=== PATIENT | male | born 1970 | race Caucasian/White ===

== ENCOUNTER 2016-12-06 01:25 | Emergency (ER) | payer BC, OTHER ==
--- NOTE | 2016-12-06 02:06 | XR ---
EXAM: XR Left Foot Complete, 3 or More Views CLINICAL HISTORY: Reason: Pain; hit on top of foot by softball. TECHNIQUE: Frontal, lateral and oblique views of the left foot. COMPARISON: No relevant prior studies available. FINDINGS: Bones/joints: No acute fracture. No dislocation. Minor degenerative change including at the first MTP joint and which could account for tiny subchondral cysts in the fifth metatarsal head. Soft tissues: Unremarkable. No radiopaque foreign body. IMPRESSION: 1. No acute fracture or evidence of dislocation. 2. Note, nondisplaced fractures may initially be inapparent, and short- term follow-up could be considered if concern or symptoms persist.
--- NOTE | 2016-12-06 02:13 | ED ---
Lower Extremity Injury HPI - General Chief Complaint: Extremity Injury, Lower Stated Complaint: Foot Injury Time Seen by Provider: 12/06/16 01:46 Source: patient, RN notes reviewed, old records reviewed Mode of arrival: ambulatory Limitations: no limitations - History of Present Illness Initial Comments: 46-year-old male presents emergency Department chief complaint left foot pain after being hit in the top of the foot with a softball. Patient reports pain with flexion and extension of his toes. Patient reports the pain was worse with bearing weight over the foot. Patient denies any previous injuries. Patient does have significant swelling over the dorsum of the left foot. Pain is mainly over the first through third metatarsals. - Related Data Home Medications Medication Instructions Recorded Confirmed No Known Home Medications [No 12/22/13 12/06/16 Known Home Medications] Allergies Allergy/AdvReac Type Severity Reaction Status Date / Time No Known Allergies Allergy Verified 12/06/16 01:33 Review of Systems ROS Statement: Those systems with pertinent positive or pertinent negative responses have been documented in the HPI. ROS Other: All systems not noted in ROS Statement are negative. Past Medical History Past Medical History: No Reported History History of Any Multi-Drug Resistant Organisms: None Reported Past Surgical History: No Surgical Hx Reported Past Psychological History: No Psychological Hx Reported Smoking Status: Current every day smoker Past Alcohol Use History: Occasional Past Drug Use History: Marijuana General Exam Limitations: no limitations General appearance: alert, in no apparent distress Head exam: Present: atraumatic, normocephalic, normal inspection Eye exam: Present: normal appearance, PERRL, EOMI. Absent: scleral icterus, conjunctival injection, periorbital swelling ENT exam: Present: normal exam, mucous membranes moist Neck exam: Present: normal inspection. Absent: tenderness, meningismus, lymphadenopathy Respiratory exam: Present: normal lung sounds bilaterally. Absent: respiratory distress, wheezes, rales, rhonchi, stridor Cardiovascular Exam: Present: regular rate, normal rhythm, normal heart sounds. Absent: systolic murmur, diastolic murmur, rubs, gallop, clicks GI/Abdominal exam: Present: soft, normal bowel sounds. Absent: distended, tenderness, guarding, rebound, rigid Extremities exam: Present: normal inspection, full ROM, normal capillary refill , other (Swelling over the dorsum of the left foot. Patient is tender over the first metatarsals.). Absent: tenderness, pedal edema, joint swelling, calf tenderness Back exam: Present: normal inspection Neurological exam: Present: alert, oriented X3, CN II-XII intact Psychiatric exam: Present: normal affect, normal mood Skin exam: Present: warm, dry, intact, normal color. Absent: rash Course Vital Signs 12/06/16 12/06/16 01:30 02:31 Temperature 97.7 F 97.9 F Pulse Rate 76 89 Respiratory 18 16 Rate Blood Pressure 130/70 115/62 O2 Sat by Pulse 96 98 Oximetry Medical Decision Making - Medical Decision Making 46-year-old male presents emergency Department chief complaint left foot pain after being hit in the top of the foot with a softball. Patient reports pain with flexion and extension of his toes. Patient reports the pain was worse with bearing weight over the foot. Patient denies any previous injuries. Patient does have significant swelling over the dorsum of the left foot. Pain is mainly over the first through third metatarsals. X-rays reviewed negative for any acute process. Recommended follow-up within the next week if symptoms continue persist. Patient will be given an Kamlesh wrap. Patient will be written for crutches and instructed to be nonweightbearing for the next 3 days. Discussed Motrin Tylenol and icing is much as possible. Patient's family and patient understands treatment plan will comply. Return parameters were discussed. - Radiology Data Radiology results: report reviewed X-rays negative for any acute process. Disposition Clinical Impression: Contusion of left foot Disposition: HOME SELF-CARE Condition: Good Instructions: Foot Contusion (ED) Additional Instructions: Patient advised to take Motrin or Tylenol for pain. Apply ice over the area. Patient also follow-up with orthopedics if symptoms continue to persist after in the next week. Use crutches and be nonweightbearing for the next 3-4 days. Rest, ice, elevate the foot is much as possible. Referrals: Julia Nance MD [Primary Care Provider] - 1-2 days Time of Disposition: 02:13
[2016-12-06 02:32] VITALS: BP 115/62; PULSE 89; RESP 16; TEMP 97.9
== END 2016-12-06 02:32 | disposition home or self-care (01) ==
LOC: EC 01:25
DX: S90.32XA Contusion of left foot, initial encounter (principal); F17.200 Nicotine dependence, unspecified, uncomplicated; W21.07XA Struck by softball, initial encounter; Y93.64 Activity, baseball
CPT/HCPCS: 99284

== ENCOUNTER 2024-05-01 11:46 | Emergency (ER) | payer OTHER ==
[2024-05-01] MEDS: PROPARACAINE 0.5% OPHTH DROPS 15 ML BTL RIGHT EYE STA (12:13)
[2024-05-01] MEDS: FLUORESCEIN STRIPS 1 MG STRIP RIGHT EYE ONE (12:13)
--- NOTE | 2024-05-01 12:39 | ED ---
Eye Problem HPI - General Chief complaint: Eye Problems Stated complaint: L eye issue Time Seen by Provider: 05/01/24 12:03 Source: patient, RN notes reviewed Mode of arrival: ambulatory Limitations: no limitations - History of Present Illness Initial comments: 53-year-old male presents emergency department with chief complaint of left eye irritation, pain. Patient states that he was blowing some leaves when he felt this in the [place] his eye. Patient states he went several times no relief. Patient states he still having symptoms. Patient states his upper eyelid is painful to the touch. Patient denies any drainage no other complaints. Tetanus up-to-date. - Related Data Home Medications Medication Instructions Recorded Confirmed No Known Home Medications 12/22/13 12/06/16 Allergies Allergy/AdvReac Type Severity Reaction Status Date / Time No Known Allergies Allergy Verified 05/01/24 12:01 Review of Systems ROS Statement: Those systems with pertinent positive or pertinent negative responses have been documented in the HPI. ROS Other: All systems not noted in ROS Statement are negative. Past Medical History Past Medical History: No Reported History History of Any Multi-Drug Resistant Organisms: None Reported Past Surgical History: No Surgical Hx Reported Past Psychological History: No Psychological Hx Reported Past Alcohol Use History: Occasional Past Drug Use History: Marijuana General Exam Limitations: no limitations General appearance: alert, in no apparent distress Head exam: Present: atraumatic, normocephalic, normal inspection Eye exam: Present: PERRL, EOMI, conjunctival injection (Mild left), other (Patient had relief with proparacaine drops, there is small uptake in the sclera of the 12 o'clock position of the left eye with fluorescein Wood's lamp). Absent: scleral icterus, periorbital swelling ENT exam: Present: normal exam, normal oropharynx, mucous membranes moist Neck exam: Present: normal inspection, full ROM. Absent: tenderness, meningismus, lymphadenopathy Respiratory exam: Present: normal lung sounds bilaterally. Absent: respiratory distress, wheezes, rales, rhonchi, stridor Cardiovascular Exam: Present: regular rate, normal rhythm, normal heart sounds. Absent: systolic murmur, diastolic murmur, rubs, gallop, clicks Course Vital Signs 05/01/24 12:00 Temperature 97.6 F Pulse Rate 81 Respiratory 16 Rate Blood Pressure 129/91 O2 Sat by Pulse 97 Oximetry Medical Decision Making - Medical Decision Making Was pt. sent in by a medical professional or institution ([facility] Morrell, [facility], urgent care, hospital, or longterm...) When possible be specific @ -No Did you speak to anyone other than the patient for history (EMS, parent, family, police, friend...)? What history was obtained from this source @ -No Did you review nursing and triage notes (agree or disagree)? Why? @ -I reviewed and agree with nursing and triage notes Were old charts reviewed (outside hosp., previous admission, EMS record, old EKG, old radiological studies, urgent care reports/EKG's, longterm records)? Report findings @ -No old charts were reviewed Differential Diagnosis (chest pain, altered mental status, abdominal pain women, abdominal pain men, vaginal bleeding, weakness, fever, dyspnea, syncope, headache, dizziness, GI bleed, back pain, seizure, CVA, palpatations, mental health, musculoskeletal)? @ -Corneal foreign body, corneal abrasion, scleral abrasion, conjunctivitis, hordeolum odium EKG interpreted by me (3pts min.). @ -None none X-rays interpreted by me (1pt min.). @ -None done CT interpreted by me (1pt min.). @ -None done U/S interpreted by me (1pt. min.). @ -None done What testing was considered but not performed or refused? (CT, X-rays, U/S, labs)? Why? @ -None What meds were considered but not given or refused? Why? @ -None Did you discuss the management of the patient with other professionals (professionals i.e. TAT[facility] Morrell, [facility], lab, RT, psych nurse, social worker health services, entry level drafter, teacher, financial compliance officer, watch case polisher)? Give summary @ -No Was smoking cessation discussed for >3mins.? @ -No Was critical care preformed (if so, how long)? @ -No Were there social determinants of health that impacted care today? How? (Homelessness, low income, unemployed, alcoholism, drug addiction, transportation, low edu. Level, literacy, decrease access to med. care, [facility], rehab)? @ -No Was there de-escalation of care discussed even if they declined (Discuss DNR or withdrawal of care, Hospice)? DNR status @ -No What co-morbidities impacted this encounter? (DM, HTN, Smoking, COPD, CAD, Cancer, CVA, ARF, Chemo, Hep., AIDS, mental health diagnosis, sleep apnea, morbid obesity)? @ -None Was patient admitted / discharged? Hospital course, mention meds given and route, prescriptions, significant lab abnormalities, going to OR and other pertinent info. @ -Discharge patient has upper quarter loading, internal, scleral abrasion patient discharged on Tobrex eyedrops warm compresses return parameters cassy. Undiagnosed new problem with uncertain prognosis? @ -No Drug Therapy requiring intensive monitoring for toxicity (Heparin, Nitro, Insulin, Cardizem)? @ -No Were any procedures done? @ -No Diagnosis/symptom? @Internal hordeolum, scleral abrasion Acute, or Chronic, or Acute on Chronic? @ -Acute Uncomplicated (without systemic symptoms) or Complicated (systemic symptoms)? @ -Uncomplicated Side effects of treatment? @ -No Exacerbation, Progression, or Severe Exacerbation? @ -No Poses a threat to life or bodily function? How? (Chest pain, USA, ID, pneumonia, PE, COPD, DKA, ARF, appy, cholecystitis, CVA, Diverticulitis, Homicidal, Suicidal, threat to staff... and all critical care pts) @ -No Disposition Clinical Impression: Abrasion of sclera of left eye, Internal hordeolum of left eye Disposition: HOME SELF-CARE Condition: Stable Instructions (If sedation given, give patient instructions): Nickie (ED) Additional Instructions: Use Tobrex eyedrops 1 drop every 4 hours for 5 days. [facility] if symptoms worsen or any other concerns. Is patient prescribed a controlled substance at d/c from ED?: No Referrals: Mario Bryant MD [Primary Care Provider] - 1-2 days Time of Disposition: 12:40
[2024-05-01] MEDS: TOBRAMYCIN 0.3% OPHTH DROPS 5 ML BTL LEFT EYE STA (12:52)
[2024-05-01 12:55] VITALS: BP 130/71; PULSE 75; RESP 18; TEMP 98.2
== END 2024-05-01 12:55 | disposition home or self-care (01) ==
LOC: EC 11:46
DX: S05.02XA Injury of conjunctiva and corneal abrasion without foreign body, left eye, initial encounter (principal); H00.016 Hordeolum externum left eye, unspecified eyelid; X58.XXXA Exposure to other specified factors, initial encounter
CPT/HCPCS: 99283